=== PATIENT | male | born 1955 | race Caucasian/White ===

== ENCOUNTER → 2019-06-08 | Outpatient (CLI) | payer SELFPAY ==
--- NOTE | 2019-06-08 13:11 | Diagnostic Imaging Report ---
CT CHEST WO TECHNIQUE: Multiple contiguous axial images were obtained through the chest without the use of intravenous contrast. All CT scans use one or more of the following dose optimizing techniques: automated exposure control, MA and/or KvP adjustment based on a patient size and exam type, or iterative reconstruction. INDICATION: Lung nodule. COMPARISON: None available. FINDINGS: Lungs and airway: No endoluminal nodule within the trachea. Centrilobular micronodules and groundglass opacities present in bilateral upper lobes. There is a 1 cm solid nodule within the right lower lobe in the lateral costophrenic angle (image 130, series 3) that is indeterminate in nature. Calcified pulmonary nodule in the left lower lobe is compatible with old granulomatous infection. Pleura: No pleural effusion or pneumothorax. Heart and mediastinum: Thyroid is normal. No supraclavicular or axillary lymphadenopathy. No mediastinal, discrete hilar or juxtaphrenic lymphadenopathy. Heart is normal in size without pericardial effusion. Normal caliber thoracic aorta. Distal esophagus is normal in appearance. Upper abdomen: Incidental note of a 4 mm nonobstructing stone in the mid aspect of the left kidney. Musculoskeletal: No lytic or blastic skeletal lesions. IMPRESSION: 1. Indeterminate 1 cm pulmonary nodule in the right lower lobe along the hemidiaphragm. Correlation with outside CT imaging of the chest or abdomen would be beneficial to document duration of stability. If no outside imaging is present, then a CT chest without contrast in 3 months is recommended for further assessment. 2. Centrilobular micronodules in the upper lobes may be due to respiratory bronchiolitis if the patient has a history of smoking. In the absence of smoking history, these are most likely infectious in etiology. 3. Incidental note of nonobstructing 4 mm left renal stone. Dictated by: Dictated on workstation # [id number]
== END ==
LOC: RAD FS 12:15
PROVIDERS: ATTEND Nurse Practitioner Family
DX: R91.1 Solitary pulmonary nodule (principal); N20.0 Calculus of kidney
CPT/HCPCS: 71250